=== PATIENT | male | born 1990 | race Caucasian/White ===

== ENCOUNTER 2017-09-28 20:10 | Emergency (ER) | payer SELFPAY ==
[2017-09-28 20:17] VITALS: BP 139/73; PULSE 82; RESP 18; TEMP 97.9; O2SAT 100
--- NOTE | 2017-09-28 20:43 | PD ---
HPI . Overdose Chief Complaint: OD/ Ingestion Time Seen by Provider: 20:17 Travel History International Travel<30 days: No Contact w/Intl Traveler<30days: No Traveled to known affect area: No History of Present Illness HPI 27-year-old male who is a previous opiate abuser, been sober for some time, snorted a powdery substance evening with coworkers and had near instant cessation of breathing. Family started CPR colds EMS administered Narcan, patient subsequently awakened, transported to ED. Patient currently has no complaints except for remorseful about relapsing. Denies any headache, visual changes, neck pain or stiffness, chest pain shortness of breath, nausea vomiting , any focal weakness numbness or tingling. Patient had no incontinence. [facility] Past Medical History Narrative Medical No significant past medical history Medical History: Denies Significant Hx Diminished Hearing: No Tetanus Vaccination: > 5 Years Past Surgical History Surgical History: No Previous Surgery Social History Alcohol Use: Yes Tobacco Use: Yes Substance Use: Yes (heroin) Allergies-Medications Narrative Medication Allergies and medications reviewed Review of Systems Except as stated in HPI: all other systems reviewed are Neg General / Constitutional: No: Fever Eyes: No: Visual changes HENT: No: Headaches Cardiovascular: No: Chest Pain or Discomfort Respiratory: No: Shortness of Breath Gastrointestinal: No: Abdominal Pain Genitourinary: No: Dysuria Musculoskeletal: No: Pain Skin: No Rash Neurologic: No: Weakness Psychiatric: No: Depression Endocrine: No: Polydipsia Hematologic/Lymphatic: No: Easy Bruising Physical Exam Narrative GENERAL: Awake alert oriented 3 no acute distress SKIN: Warm and dry. Color is normal no diaphoresis cyanosis or pallor. No tract cruz HEAD: Atraumatic. Normocephalic. EYES: Pupils equal and round and pinpoint. No scleral icterus. No injection or drainage. ENT: No nasal bleeding or discharge. Mucous membranes pink and moist. NECK: Trachea midline. No JVD. Supple full range of motion CARDIOVASCULAR: Regular rate and rhythm. S1-S2 no murmurs or gallops RESPIRATORY: No accessory muscle use. Clear to auscultation. Breath sounds equal bilaterally. GASTROINTESTINAL: Abdomen soft, non-tender, nondistended. Hepatic and splenic margins not palpable. MUSCULOSKELETAL: Extremities without clubbing, cyanosis, or edema. No obvious deformities. NEUROLOGICAL: Awake and alert. No obvious cranial nerve deficits. Motor grossly within normal limits. Five out of 5 muscle strength in the arms and legs. Normal speech. PSYCHIATRIC: Appropriate mood and affect; insight and judgment normal. See history of present illness. No suicidal or homicidal ideations Data Data Last Documented VS Vital Signs Date Time Temp Pulse Resp B/P (MAP) Pulse Ox O2 Delivery O2 Flow Rate FiO2 09/28/17 20:24 100 09/28/17 20:17 97.9 82 18 139/73 (95) MDM Medical Decision Making Medical Screen Exam Complete: Yes Emergency Medical Condition: Yes Medical Record Reviewed: Yes Differential Diagnosis Overdose Narrative Course Discussed the patient's drug use and potential hazard at length. Patient was unclear of the supplier, having been given the drug by a coworker. Patient states she's never had an overdose in the past and has never injected opiates only snorted. Diagnosis Primary Impression: Opiate overdose Qualified Codes: T40.601A - Poisoning by unspecified narcotics, accidental ( unintentional), initial encounter Additional Instructions: Refrain from using narcotic drugs. Follow-up with Narcotics Anonymous/ rehabilitation. Disposition: 01 DISCHARGE HOME Condition: Stable Matty Ni MD Sep 28, 2017 20:43
[2017-09-28] MEDS ORDERED: NALOXONE HCL 2 MG/2 ML VIAL IM ONE (21:00)
[2017-09-28] MEDS ORDERED: ACETAMINOPHEN 325 MG TAB PO ONE (21:15)
[2017-09-28 21:53] VITALS: BP 142/68; PULSE 78; RESP 16; O2SAT 99
== END 2017-09-29 00:43 | disposition home or self-care (01) ==
LOC: NEPC 20:10
DX: T40.601A Poisoning by unspecified narcotics, accidental (unintentional), initial encounter (principal); Z72.0 Tobacco use
CPT/HCPCS: 96372; 99284; J2310

== ENCOUNTER 2017-12-28 16:07 | Emergency (ER) | payer OTHER ==
[~2017-12-28] VITALS: Ht 180.3 cm; Wt 79.5 kg
[2017-12-28 16:11] VITALS: BP 179/77; PULSE 88; RESP 20; TEMP 98.8; O2SAT 96
[2017-12-28] MEDS ORDERED: LIDOCAINE 1%/EPINEPHrine 1:100,000 SOLN 20 ML VIAL INFIL ONE (16:30)
[2017-12-28] MEDS ORDERED: TETANUS/DIPHTHERIA TOXOID ADULT 0.5 ML VIAL IM ONE (16:30)
--- NOTE | 2017-12-28 16:30 | PD ---
HPI Chief Complaint: Laceration/Skin Injury Time Seen by Provider: 16:22 Travel History International Travel<30 days: No Contact w/Intl Traveler<30days: No Traveled to known affect area: No History of Present Illness HPI 27-year-old male complains of pain in the left forearm. 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 The injury was accidental. Bleeding resolved with application of a pressure dressing. Last tetanus shot unknown to patient. Onset sudden. Timing constant. Pain of moderate severity. No numbness tingling weakness in the left hand reported. PFSH Past Medical History Diminished Hearing: No Social History Alcohol Use: Yes Tobacco Use: Yes Substance Use: No ( ) Allergies-Medications (Allergen,Severity, Reaction): Coded Allergies: No Known Allergies (Verified Allergy, Unknown, 09/28/17) Reported Meds & Prescriptions Reported Meds & Active Scripts Active No Active Prescriptions or Reported Medications Review of Systems Except as stated in HPI: all other systems reviewed are Neg General / Constitutional: No: Fever Eyes: No: Blurred Vision HENT: No: Vertigo Cardiovascular: No: Chest Pain or Discomfort Physical Exam Narrative GENERAL: 27-year-old male pleasant well-nourished well-developed mild to moderate distress secondary to pain and/or anxiety Vital Signs Date Time Temp Pulse Resp B/P (MAP) Pulse Ox O2 Delivery O2 Flow Rate FiO2 12/28/17 16:11 98.8 88 20 179/77 (111) 96 SKIN: Warm and dry. HEAD: Atraumatic. Normocephalic. EYES: Pupils equal and round. No scleral icterus. No injection or drainage. ENT: No nasal bleeding or discharge. Mucous membranes pink and moist. NECK: Trachea midline. No JVD. CARDIOVASCULAR: Regular rate and rhythm. 2+ radial artery pulse bilaterally RESPIRATORY: No accessory muscle use. Clear to auscultation. Breath sounds equal bilaterally. GASTROINTESTINAL: Abdomen soft, non-tender, nondistended. Hepatic and splenic margins not palpable. MUSCULOSKELETAL: Extremities without clubbing, cyanosis, or edema. No obvious deformities. The handgrip is 5/5 bilaterally. In particular flexion-extension involving the digits of the left hand is normal. Along the proximal third of the left forearm there is about a 5 cm linear laceration somewhat diagonally oriented. There is no visualized tendon laceration. Radial median and ulnar nerve sensation is preserved. NEUROLOGICAL: Awake and alert. No obvious cranial nerve deficits. Motor grossly within normal limits. Five out of 5 muscle strength in the arms and legs. Normal speech. PSYCHIATRIC: Appropriate mood and affect; insight and judgment normal. Data Data Last Documented VS Vital Signs Date Time Temp Pulse Resp B/P (MAP) Pulse Ox O2 Delivery O2 Flow Rate FiO2 12/28/17 16:11 98.8 88 20 179/77 (111) 96 Orders Orders Tetanus/Diphtheria Tox Adult (Tetanus/Di (12/28/17 16:30) Lidocai-Epi 1%-1:100,000 Inj (Xylocaine- (12/28/17 16:30) MDM Medical Decision Making Medical Screen Exam Complete: Yes Emergency Medical Condition: Yes Medical Record Reviewed: Yes Differential Diagnosis Laceration, tendon laceration, nerve injury, arterial injury Narrative Course No neurovascular injury. No tendon injury. Laceration repaired by HARRIETT Lozano. Diagnosis Primary Impression: Laceration of forearm without complication Qualified Codes: S51.812A - Laceration without foreign body of left forearm, initial encounter Referrals: RETURN IN NINE DAYS FOR SUTURE REMOVAL Med/Other Pt SpecificInfo: No Change to Meds Scripts No Active Prescriptions or Reported Meds Disposition: 01 DISCHARGE HOME Condition: Stable Sylvester Butt MD Dec 28, 2017 16:30
--- NOTE | 2017-12-28 16:53 | PD ---
Physical Exam Date Seen by Provider: Dec 28, 2017 Time Seen by Provider: 16:50 Narrative 27-year-old male with a workplace injury consisting of laceration to the left volar forearm. I was asked by Dr. Butt to close the wound. Please see my laceration note. Data Data Last Documented VS Vital Signs Date Time Temp Pulse Resp B/P (MAP) Pulse Ox O2 Delivery O2 Flow Rate FiO2 12/28/17 16:11 98.8 88 20 179/77 (111) 96 Orders Orders Tetanus/Diphtheria Tox Adult (Tetanus/Di (12/28/17 16:30) Lidocai-Epi 1%-1:100,000 Inj (Xylocaine- (12/28/17 16:30) MDM Medical Record Reviewed: Yes Supervised Visit with SUHAIL: Yes Procedures Procedure Narrative LACERATION LOCATION: Left volar forearm LENGTH: 5 cm linear NUMBER OF STITCHES/JULITA: 3 interrupted vertical, 6 interrupted horizontal REPAIR: The area of the laceration was prepped with Betadine and sterilely draped. The laceration was infiltrated with 4 mL 1% lidocaine with epi. The wound was copiously irrigated and explored without evidence of foreign body, tendon injury or neurovascular injury. The wound was closed using wound cleanser and Betadine. This was a single layer repair. A sterile dressing was applied. The patient was advised to keep the dressing clean and dry. Patient tolerated the procedure well. Diagnosis Primary Impression: Laceration of forearm without complication Qualified Codes: S51.812A - Laceration without foreign body of left forearm, initial encounter Referrals: RETURN IN NINE DAYS FOR SUTURE REMOVAL Scripts No Active Prescriptions or Reported Meds Disposition: 01 DISCHARGE HOME Condition: Stable Solis Lozano Dec 28, 2017 16:53
[2017-12-28] MEDS ORDERED: CEPH-460 PO (17:41)
[2017-12-28] MEDS ORDERED: IBUP1TAB7 PO (17:41)
== END 2017-12-28 17:45 | disposition home or self-care (01) ==
LOC: NEPD 16:07
DX: S51.812A Laceration without foreign body of left forearm, initial encounter (principal); W27.8XXA Contact with other nonpowered hand tool, initial encounter; Y93.H3 Activity, building and construction; Y99.0 Civilian activity done for income or pay; Z72.0 Tobacco use; Z23 Encounter for immunization
CPT/HCPCS: 12002; 90471; 90714